=== PATIENT | male | born 2005 | race Caucasian/White ===

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

== ENCOUNTER 2025-01-12 12:58 | Outpatient (REF) | payer OTHER, SELFPAY ==
--- NOTE | 2025-01-12 14:50 | MHC.AU.HA2 ---
Hearing Instrument Fitting- Adult- Binaural Date of Visit: 01/12/25 Hearing Instruments Dispensed: Right Ear: Make, Model, Color, Serial Number: Yumiko Zaidi I70-R SN: [id number] Color: [place] Admitted Attorneys Repair Warranty: 01/14/2030 Admitted Attorneys Loss and Damage Warranty: 01/14/2030 [facility] Service Plan: 01/12/2026 Battery Size: Rechargeable Industrial Engineering Analyst/Slim Tube: 0M Earmold/Dome/CShell/SlimTip: cShell Skeleton SN: [id number] Martha: 04/14/2025 Type of Wax Guard: CeruStop Left Ear: Make, Model, Color, Serial Number: Yumiko Zaidi I70-R SN: [id number] Color: [place] Admitted Attorneys Repair Warranty: 01/14/2030 Admitted Attorneys Loss and Damage Warranty: 01/14/2030 [facility] Service Plan: 01/12/2026 Battery Size: Rechargeable Industrial Engineering Analyst/Slim Tube: 0M Earmold/Dome/CShell/SlimTip: cShell Skeleton SN: [id number] Martha: 04/14/2025 Type of Wax Guard: CeruStop Accessories/Assistive Technology: Phonak Detention Officer PELON SN: [id number] Summary of Fitting: Accompanied by mother, Carla. Per mom, after last hearing test, evaluated by Dr. Renteria and dx left-sided ear infection. Retested left ear prior to fitting with noted improvement in thresholds. Programmed HAs. Performed feedback analyzer. Could not perform real ear due to technical difficulties. Carlos happy with initial fit settings. Disabled VC/program buttons. Reviewed care, use, and rechargeability including manually turning on/off and changing wax guards. As a long-time VIGIL user, Carlos was otherwise familiar with general maintenance. Wanted to connect to phone but did not bring phone to appointment. Printed instructions for how to connect at home. Scheduled follow up but may cancel if all is well. Recommendations: A hearing instrument follow-up was scheduled. Diagnosis Code(s): Primary Diagnosis: H90.6 Mixed Hearing Loss, Bilateral Signature: Provider: Nella Chambers, [facility]
--- OUTSIDE RECORDS SUMMARY | 2025-01-12 15:20 | XMS_ITS | Encounter Summary ---
Author Organization [facility] Address [address] [place], [place] [phone] Phone Care Team Providers Care Guide Domestic Tour Name Role Phone Ziggy Ang MD Primary Care Provider Encounter Details Date Type Department Care Team (Late st Contact Info) Description 09/28/2017 Conversion [facility]counter [facility] [address] [address] Ziggy Ang MD [address] [place] [address] Social History Tobacco Use Types Packs/Day Years Used Date Smoking Tobacco: Never Assessed Sex and Gender Information Value Date Recorded Sex Assigned at Not on file Legal Sex Male 6:26 PM EDT Gender Identity Not on file Sexual Orientation Not on file documented as of this encounter Plan of Treatment Upcoming Encounters Date Type Department Care Team (Late st Contact Info) Description 01/24/2025 10:15 AM EDT [facility] Visit [facility] [address] [address] Ziggy Ang MD [address] [place] [address] documented as of this encounter Visit Diagnoses Not on filedocumented in this encounter Care Teams Guide Domestic Tour Relationship Specialty Start Date End Date Ziggy Ang MD [address] [place] [address] PCP - General Pediatrics 03/27/23 documented as of this encounter
--- OUTSIDE RECORDS SUMMARY | 2025-01-12 15:20 | XMS_ITS | Clinical Summary ---
Author Organization [facility] Address [address] [id number] Care Team Providers Care Hair Colorist Name Role Phone Ziggy Ang MD Primary [...] since no residual, f/u 6 mos. Saw house steward/stewardess 03/14/11 and 03/27 to f/u in 5 [...] since no residual, f/u 6 mos. Saw house steward/stewardess 03/14/11 and 03/27 to f/u in 5 years. Last Assessment & Plan: Cleared by cardiology several years ago per mom Mixed conductive and sensori neural hearing loss of both ears 09/17/2018 05/23/2023 Overview (05/23/2023): [facility] 5 mild hearing loss, to f/u 12/07/09; had test 11/19 and 05/23, borderline normal hearing, left tube patent; Seen at ENT 09/27. Seen at [facility] and planned for hearing aids. Last Assessment & Plan: Hearing aids at school Outside Source Comment: Overview: [facility] hearing test 5 mild hearing loss, to f/u 12/07/09; had test 11/19 and 05/23, borderline normal hearing, left tube patent; Seen at ENT 09/27. Seen at [facility] and planned for hearing aids. Last [...] Overview (05/23/2023): Concerns wtih speech seen at [facility] 10/11/14 to have nasalendoscopy of speech to assess ENVIRONMENTAL PROGRAMS MANAGER closure pattern, to have hearing evaluation, continue speech, get additional services at [facility], f/u in 6 mos at [facility]. Saw Dr. Lowe 10/11/14 to have a nasal endoscopy and to add speech therapy through a hospital clinic, and to f/u in 6 mos. To have speech eval at [facility] per telephone encounter 02/14/15, Seen 03/14/15 dx: severe articulation d/o, hypernasality. to continue speech therapy at school and to have intensive speech therapy outpt. To see Dr. Douglas at ENT 05/01; per ENT note. 03/02: seen Claire; plans for further evaluation and work up. 08/01: considering speech surgery with flap and T&A via [facility]. Last Assessment & Plan: Has upcoming 12/[address] Casarez for pharyngeal flap. Outside Source Comment: Overview: Concerns wtih speech seen at [facility] 10/11/14 to have nasalendoscopy of speech to assess ENVIRONMENTAL PROGRAMS MANAGER closure pattern, to have hearing evaluation, continue speech, get additional services at [facility], f/u in 6 mos at [facility]. Saw Dr. Lowe 10/11/14 to have a nasal endoscopy and to add speech therapy through a hospital clinic, and to f/u in 6 mos. To have speech eval at [facility] per telephone encounter 02/14/15, Seen 03/14/15 dx: severe articulation d/o, hypernasality. to continue speech therapy at school and to have intensive speech therapy outpt. To see Dr. Douglas at ENT 05/01; per ENT note. 03/02: seen [facility]; plans for further evaluation and work up. 08/01: considering speech surgery with flap and T&A via [facility]. Last Assessment & Plan: Has upcoming 12/27 [...] Plan of Treatment Not on file Insurance [facility] [place] [id number] [facility] [place] [facility] [place] [id number] Care Teams Hair Colorist Relationship Specialty Start Date End Date Ziggy Ang MD [address] [place] [id number] PCP - General 02/22/22
--- OUTSIDE RECORDS SUMMARY | 2025-01-12 15:20 | XMS_ITS | Encounter Summary ---
Author Organization [facility] Address [address] [place] [address] Care Team Providers Care Firm Administrator Name Role Phone Unavailable Primary Care Provider Unavailabl e Encounter Details Date Type Department Care Team (Latest Contact Info) Description 06/04/2020 Lab Requisition [facility] COVID Drive Through [address] [place] [address] [address] [place] [address] Gabriel Quiroz MD [address] [place], [place] [phone] Encounter for laboratory testing for COVID-19 virus [...] Lizbeth Sinclair, Ph.D., Laboratory DirectorTests performed at [facility] Nasopharyngeal swab / Unknown 06/04/2020 1:25 PM EST 06/04/2020 1:25 PM EST Narrative OLGA YODER - 06/06/2020 8:48 AM EST Performed by [employer] [employer] [address] [place] [address], CLIA# [id number] and [place] License# [id number] us Gabriel Quiroz MD MICROBIOLOGY - GENERAL ORDER KENDRA Final Result OLGA YODER documented in this encounter Visit Diagnoses Diagnosis Encounter for laboratory testing for COVID-19 virus documented in this encounter
--- OUTSIDE RECORDS SUMMARY | 2025-01-12 15:20 | XMS_ITS | Clinical Summary ---
Author Organization [facility] Address [address] [place] [address] Care Team Providers Care Restaurant General Manager Name Role Phone Unavailable Primary Care Provider Unavailabl e Social History Tobacco Use Types Packs/Day Years Used Date Smoking Tobacco: Never Assessed Sex and Gender Information Value Date Recorded Sex Assigned at Not on file Legal Sex Male 1:24 PM EST Gender Identity Not on file Sexual Orientation Not on file Plan of Treatment Health Maintenance Due Date Last Done Comments Hepatitis C Virus Screening 2005 HIV Screening 2018 HPV Vaccines (1 - Male 3-dos e series) 2020 COVID-19 Vaccine (1 - 2023-2 5 season) 2024 DTaP/Tdap/Td Vaccines (1 - Tdap) 2024 Hepatitis B Vaccines (1 of 3 - 19+ 3-dose series) 2024 Influenza Vaccine 12/10/2024 Pneumococcal Vaccine: Pediat lynn (0-5 Years) and At-Risk Patients (6 to 49 Years) Aged Out No longer eligible b ased on patient's age to complete this topic Insurance [facility] [employer]
--- OUTSIDE RECORDS SUMMARY | 2025-01-12 15:20 | XMS_ITS | Encounter Summary ---
Author Organization [facility] Address [address] [place] [address] Care Team Providers Care Parallel Computing Software Engineer Name Role Phone Unavailable Primary Care Provider Unavailabl e Encounter Details Date Type Department Care Team (Latest Contact Info) Description 06/19/2020 Lab Requisition [facility] COVID Drive Through [address] [place] [address] [address] [place] [address] Gabriel Quiroz MD [address] [place], [place] [phone] Encounter for laboratory testing for COVID-19 virus [...] Stuart García, Ph.D., Laboratory DirectorTests performed at [facility] Nasopharyngeal swab / Unknown 06/19/2020 3:20 PM EST 06/19/2020 3:20 PM EST Narrative OLGA YODER - 06/20/2020 10:14 PM EST Performed by [facility] [address] [place] [address], CLIA# [id number] and [place] License# [id number] us Gabriel Quiroz MD MICROBIOLOGY - GENERAL ORDER KENDRA Final Result OLGA YODER documented in this encounter Visit Diagnoses Diagnosis Encounter for laboratory testing for COVID-19 virus documented in this encounter
--- OUTSIDE RECORDS SUMMARY | 2025-01-12 15:20 | XMS_ITS | Clinical Summary ---
Author Organization [facility] Address [address] [place] [id number] Phone Care Team Providers Care Relationship Assoc Name Role Phone Ziggy Ang MD Primary Care Provider Allergies No known active allergies Medications Multiple Vitamin (MULTIVITAMIN PO) Take 1 tablet by mouth daily. Active cetirizine (ZyrTEC) 10 MG chewable tabletIndicatio ns:Seasonal allergies Chew 1 tablet (10 mg total) daily. 30 tablet 11 4 Active Additional Information Patient not taking.Reported on 06/24/2024 fluticasone 50 MCG/ACT nasal sprayIndication s:Seasonal allergies Administer 1 spray into each nostril daily. 1 mL 5 4 03/25/20 25 Active Additional Information Patient not taking.Reported on 12/08/2024 clotrimazole 1 % creamIndication s:Tinea cruris Apply to redness in groin area twice daily for 3 weeks 90 g 2 5 Active Chlorhexidine Gluconate (Hibiclens) 4 % solutionIndicat ions:Pimples Use when bathing to wash skin of buttocks only to prevent pimples, rinse well 473 mL 3 5 Active amoxicillin 875 MG tabletIndicatio ns:Recurrent acute suppurative otitis media without spontaneous rupture of left tympanic membrane Take 1 tablet (875 mg total) by mouth 2 (two) times a day for 7 days. 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 Seen at [facility] and planned for hearing aids. Assessment & Plan (12/08/2024 2:53 PM EDT): Form signed, scanned and faxed. Assessment & Plan (03/25/2024 3:18 PM EST): [...] hearing. Hypernasal speech 10/03/2016 Overview (05/23/2023): Concerns wtih speech seen at [facility] 10/11/14 to have nasalendoscopy of speech to assess INTERMODAL DISPATCHER closure pattern, to have hearing evaluation, continue speech, get additional services at [facility], f/u in 6 mos at [facility]. Saw Dr. Lowe 10/11/14 to have a nasal endoscopy and to add speech therapy through a hospital clinic, and to f/u in 6 mos. To have speech eval at [facility] per telephone encounter 02/14/15, Seen 03/14/15 dx: severe articulation d/o, hypernasality. to continue speech therapy at school and to have intensive speech therapy outpt. To see Dr. Douglas at ENT 05/01; per ENT note. 03/02: seen [facility]; plans for further evaluation and work up. 08/01: considering speech surgery with flap and T&A via [facility]. 06/04: seen at [facility] for VPI (Velopharyngeal insufficiency) follow up Assessment [...] Darío-Perez virus (EBV) 10/22/2021 11/27/2021 Overview (10/22/2021): 10/31 Fatigue 10/18/2021 11/27/2021 Assessment & Plan (10/18/2021 [...] since no residual, f/u 6 mos. Saw operator coating furnace 03/14/11 and 03/27 to f/u in 5 years. Assessment & Plan (02/14/2023 3:57 PM EDT): Cleared by cardiology several years ago per mom Encounters Date Type Department Care Team Description 12/08/2024 2:30 PM EDT [facility] [address] [address] Ziggy Ang MD Mixed conductive and sensorineural hearing loss of both ears (Primary Dx); Recurrent acute suppurative otitis media without spontaneous rupture of left tympanic membrane 12/01/2024 Telephone [facility] [address] [address] Shahida Kaufman hearing aids clearance 11/24/2024 Telephone [facility] [address] [address] Ziggy Ang MD letter faxed to [facility] from Last 3 Months Immunizations Immunization Administration [...] Father 2016 at ag e 60 [place] age: 62 diagnosed with HEART DISEASE NOS [...] Sign Reading Time Taken Comments Blood Pressure 116/72 12/08/2024 2:29 PM EDT Pulse 97 12/08/2024 2:29 PM EDT Temperature 37 C (98.6 F) 12/08/2024 2:29 PM EDT Respiratory Rate - - Oxygen Saturation 96% 12/08/2024 2:29 PM EDT Inhaled Oxygen Concentration - - Weight 61 kg (134 lb 6.4 oz) 12/08/2024 2:29 PM EDT Height 157.5 cm (5' 2 ) 03/25/2024 3:05 PM EST Body Mass Index 24.58 03/25/2024 3:05 PM EST Plan of Treatment Upcoming Encounters Date Type Department Care Team (Late st Contact Info) Description 01/24/2025 10:15 AM EDT [facility] [address] [address] Ziggy Ang MD [address] [place] [phone] Health Maintenance Due Date Last Done Comments Men B Vaccine (2 of 2 - Bexs ero SCDM 2-dose series) 09/22/2024 03/25/2024 Influenza Vaccines (#1) 2024 03/25/20 24, 02/07/2023, 04/24/2021, Additional history exists COVID-19 Vaccine (6 - 2024-2 6 season) 2025 02/07/2023, 01/28/2022, 05/22/2021, Additional history exists DTaP,Tdap,and Td Vaccines (7 - Td or [...] HPV Vaccines Completed 07/03/2023, 05/0 01/2022, 01/02/2021 Procedures * Due to [place] state law, this organization might not be sharing sensitive test results. Procedure Name Priority Date/Time Associated Diagnosis Comments AMB REFERRAL TO AUDIOLOGY 01/03/2025 1:16 PM EDT Apraxia Down syndrome from Last 3 Months Results * Due to [place] [employer] law, this organization might not be sharing sensitive test results. * Ambulatory referral to Audiology (01/03/2025 1:16 PM EDT) us Ziggy Ang MD OUTPATIENT REFERRAL ORDERABL ES Final Result Performing Organization Address City/State/[facility] Co de Phone Number [facility] [address] [phone] from Last 3 Months Insurance [facility] Address: [address] [address] [place] [address] [facility] NON PCC [facility] NON PCC [facility] Care Teams Relationship Assoc Relationship Specialty Start Date End Date Ziggy Ang MD [address] [place] [address] PCP - General Pediatrics 03/27/23
== END 2025-01-12 12:59 | disposition home or self-care (01) ==
LOC: HO.HAP 12:58
PROVIDERS: Visit Provider Pediatrics
DX: Z46.1 Encounter for fitting and adjustment of hearing aid (principal); H90.6 Mixed conductive and sensorineural hearing loss, bilateral
CPT/HCPCS: V5011; V5160; V5261; V5264

== ENCOUNTER 2025-03-01 14:25 | Outpatient (REF) | payer OTHER, SELFPAY ==
--- OUTSIDE RECORDS SUMMARY | 2025-03-01 19:30 | XMS_ITS | Encounter Summary ---
Author Organization [facility] Address [address] [place] [address] Care Team Providers Care Hedis Coordinator Name Role Phone Unavailable Primary Care Provider Unavailabl e Encounter Details Date Type Department Care Team (Latest Contact Info) Description 06/04/2020 Lab Requisition [facility] COVID Drive Through [address] [place] [address] 3 [place] [address] Gabriel Quiroz MD [address] [place], [place] [phone] Encounter for laboratory testing for COVID-19 virus [...] Lizbeth Sinclair, Ph.D., Laboratory DirectorTests performed at [facility]. Microbiology Nasopharyngeal swab / Unknown 06/04/2020 1:25 PM EST 06/04/2020 1:25 PM EST Narrative OLGA YODER - 06/06/2020 8:48 AM EST Performed by [facility], [address] [place] [address], CLIA# [id number] and [place] License# [id number] us Gabriel Quiroz MD MICROBIOLOGY - GENERAL ORDER KENDRA Final Result OLGA YODER documented in this encounter Visit Diagnoses Diagnosis Encounter for laboratory testing for COVID-19 virus documented in this encounter
--- OUTSIDE RECORDS SUMMARY | 2025-03-01 19:30 | XMS_ITS | Data Portability ---
Author Organization [place] - [facility], Allergy Address [address] [address] Care Team Providers Care Farm Worker Name Role Phone CECILIA AMARAL Primary Care [...] Patient will continue to follow-up with his cable braider for hearing aid maintenance. In light of the narrowness of his canals and tendency to have cerumen impaction I will have him follow-up with the PA in 4 months for cerumen removal and tube check. [email or web address] Not available 01/28/2024 16:11:56 07/19/2024 07/19/2024 18-year-old [...] will follow-up in 3 weeks for reevaluation. [email or web address] Not available 07/19/2024 15:56:47 08/09/2024 08/09/2024 18-year-old male status post adenotonsillectomy and BMT with Dr. Vergara in September 2022 presents for follow-up of the ears. The infection has resolved. Both T tubes are patent and in good position. We will continue to observe and plan for follow up in 6 months, or sooner with concerns. 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 Renteria, then repeat BMT and adenoidectomy with concurrent tonsillectomy in September [address] Vergara, presents with his mother for routine tube check and concern of left otorrhea. On otoscopic examination, purulent drainage was completely filling the left external auditory canal. This was removed using suction which the patient tolerated fairly well. Left T-tube is unable to be visualized due to canal skin edema. Right T-tube is patent and in proper position without otorrhea or infection. Recommend a 14-day course of Ciprodex drops and dry ear precautions for the left side. Tragal pumping method was demonstrated. Follow up in 3 weeks to ensure resolution of the infection. All questions were answered. Patient also seen and evaluated by Dr. Renteria who agrees with this plan. [email or web address] Not available 12/30/2024 17:39:17 02/14/2025 02/14/2025 19-year-old male status post adenotonsillectomy and BMT with Dr. Vergara in September 2022 presents for follow up of otorrhea. Otorrhea removed on the right. Right T tube with otorrhea. Left sided cerumen impaction removed. No further otorrhea on the left. Left T tube is patent and in good position. Recommended an additional 7 days of Ciprodex and dry ear precautions on the right. He will avoid use of right sided hearing aid x 1 week while treating the infection. He will follow up in 2-3 weeks for reevaluation, or sooner with concerns. [email or web address] Not available 02/14/2025 09:35:45 Plan of Treatment Reminders Order Date Submit Date Provider Last Modified By Organization Details Last Modified Time Details Appointments None recorded. Lab fungus, culture, unspecified specimen [address] [facility] [email or web address] [facility] (Centralized Electronic Ordering - All Locations), Patient Can Go To The Location Of Their Choice, [id number] 09:29:44 culture, bacterial 2024 025 [email or web address] [id number] [facility] (Centralized Electronic Ordering - All Locations), Patient Can Go To The Location Of Their Choice, 09:29:44 Referral None recorded. Procedures None recorded. Surgeries None recorded. Imaging None recorded. Medication Orders Ciprodex 0.3 %-0.1 % ear drops,suspe nsion 2024 025 [facility]/Pharmacy #[id number], [address] [place], [address], 5 09:28:27 ciprofloxac in 0.3 %-dexametha sone 0.1 % ear drops,suspe nsion 2024 025 [facility]/Pharmacy #[id number], [address] [place], [address], 5 05:01:51 TobraDex 0.3 %-0.1 % eye drops,suspe nsion 2024 025 [id number] [address] [place], [address], 5 15:55:10 tobramycin 0.3 %-dexametha sone 0.1 % eye drops,suspe nsion 2023 024 [id number] [address] [place], [address], 4 16:07:40 Patient TargetsNo targets recorded. Patient InstructionsNo instructions recorded. Reason for Referral None Reported. Results Created Date Observation Date Name Description Value Unit Range Abnormal Flag Note LastModifiedBy Organization Detail LastModifiedTime 07/20/1907/22/2024 ANAER OBIC AND AEROB IC CULTU RE aerobic culture Final report abnormal Not Available [facility] ([facility]) [address] [place], [address], 08/17/2024 09:51:18 07/20/19 25 07/22/2024 ANAER OBIC AND AEROB IC CULTU RE result 1 COMMEN T abnormal Coryn ebact erium speci es Heavy growt h Susce ptibi lity not jf lly perfo rmed on this organ ism. Not Available [facility] ([facility]) [address] [facility] [place], [place], [address], 08/17/2024 09:51:18 07/20/19 25 07/23/2024 ANAER OBIC AND AEROB IC CULTU RE anaerobic culture Final report Not Available [facility] ([facility]) [address] [place], [address], 08/17/2024 09:51:18 07/20/19 25 07/23/2024 ANAER OBIC AND AEROB IC CULTU RE result 1 COMMEN T No anaer obic growt h in 72 hours . Not Available [facility] ([facility]) [address] [facility] [place], [place], [address], 08/17/2024 09:51:18 07/20/19 25 07/20/2024 FUNGU S CULTU RE WITH STAIN fungus stain Final report Not Available [facility] ([facility]) [address] [place], [address], 08/17/2024 09:51:19 07/20/19 25 07/20/2024 FUNGU S CULTU RE WITH STAIN result 1 COMMEN T GARRETT/C alcof luor prepa ratio n: no fungu s obser lucretia. Not Available [facility] ([facility]) [address] [place], [address], 08/17/2024 09:51:19 07/20/19 25 08/17/2024 FUNGU S CULTU RE WITH STAIN fungus (mycology) culture Final report Not Available [facility] ([facility]) [address] [facility] [place], [place], [address], 08/17/2024 09:51:19 07/20/19 25 08/17/2024 FUNGU S CULTU RE WITH STAIN result 1 COMMEN T No yeast or mold isola geoff after 4 weeks . Not Available [facility] (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 5 09:15:47 Conducti ve hearing loss, bilatera l 721889425 Active 2015 Conducti ve hearing loss, bilatera l; Note: Date Diagnose d: 6 3:50 PM (H90.0) Not Available [facility] 4 03:03:15 Bilatera l disorder of Eustachi an tubes 53746913158 34834 Active 2015 Other specifie d disorder s of Eustachi an tube, bilatera l; Note: Date Diagnose d: 6 3:50 PM (H69.83) DAVID ARTIS PA-C [address] [place] [address],[place] [address], [place], [address] , [facility] 5 09:15:47 Chronic mucoid otitis media of right middle ear 35382551057 68606 Active 2015 Chronic mucoid otitis media, right ear; Note: Date Diagnose d: 6 4:05 PM (H65.31) Not Available [facility] 4 03:03:12 Chronic adenoidi tis 793983479 Active 2016 Chronic adenoidi tis; Note: Date Diagnose d: 7 4:41 PM (J35.02) Not Available [facility] 4 03:03:14 Postoper ative follow-u p visit Active 2016 Post op; Note: Date Diagnose d: 09/16/2016 12:45 PM (V67.00) Not Available [facility] 4 03:03:12 Follow-u p visit Active 2016 Encounte r for follow-u p examinat ion after complete d treatmen t for conditio ns other than malignan t neoplasm ; Note: Date Diagnose d: 09/16/2016 1:13 PM (Z09) Not Available [facility] 4 03:03:15 Down's syndrome NOS Active 2019 Down syndrome , unspecif ied; Note: Date Diagnose d: 0 9:21 AM (Q90.9) Not Available [facility] 4 03:03:13 Impacted cerumen of bilatera l ears 21199900545 24374 Active 2019 Impacted cerumen, bilatera l; Note: Date Diagnose d: 0 9:21 AM (H61.23) Not Available [facility] 4 03:03:14 Otorrhea of right ear 43112588091 71799 Completed 201912/12/2023 Otorrhea , right ear; Note: Date Diagnose d: 0 9:13 AM (H92.11) DAVID ARTIS PA-C [address] [place] [address], [place], [address] , [facility] - [facility] 5 09:27:11 Hypernas ality syndrome 03540863 Active 2020 Hypernas ality; Note: Date Diagnose d: 04/25/20 21 4:13 PM (R49.21) Not Available [facility] 4 03:03:14 Obstruct gallo sleep apnea syndrome 63139222 Active 2022 Obstruct gallo sleep apnea (adult) (pediatr ic); Note: Date Diagnose d: 3 10:12 AM (G47.33) Not Available [facility] 4 03:03:14 Otorrhea of left ear 47168214704 80990 Active 2023 DAVID ARTIS PA-C [address], [place], [address] , [place] - [facility] 5 09:15:47 Otorrhea 64585651 Active 2024 DAVID ARTIS PA-C [address], [place], [address] , [place] - [facility] 5 15:55:52 Impacted cerumen in right ear 20880968722 92748 Active 2024 DAVID ARTIS PA-C [address] [facility] [address], [place], [address] , [place] - [facility] 5 15:57:25 Otorrhea of right ear 39701833127 17222 Active 2024 Otorrhea , right ear; Note: Date Diagnose d: 0 9:13 AM (H92.11) DAVID ARTIS PA-C [address] [facility] [place], [place], [address] , [facility] - [facility] 5 09:27:11 Impacted cerumen in left ear 04851259986 Active 2024 DAVID ARTIS PA-C [address] [facility],[address], [place], [address] , [facility] - [facility] 5 09:35:51 Problem Notes None recorded. Procedures Surgical History Date Name Laterality Status Provider Name and Address Organization Details Recorded Time 5 Cerumen removal without microscope left completed DAVID ARTIS PA-C [address] [facility], [place], [address], [facility] - [facility] 02/14/2025 09:33:59 5 Cerumen removal without microscope right completed DAVID ARTIS PA-C [address] [facility] [address], [place], [address], [facility] - [facility] 07/19/2024 15:56:16 4 EAC debris removal with microscope completed BULMARO RENTERIA MD [address] [facility] [address], [address], [facility] - [facility] 01/28/2024 16:06:13 Imaging Results None recorded. [...] completed Not Available Not Available Not Available amoxicill in 875 mg tablet TAKE 1 TABLET BY MOUTH TWICE A DAY FOR 7 DAYS active Not Available Not Available No t Available ciproflox acin 0.3 % eye drops Apply 3 drop three times a day 11/08 completed Medicati on ID: [id number] B rand Name: Ciloxan Send Method: E-Prescr [...] completed Not Available Not Available Not Available Cipro HC 0.2 %-1 % ear drops,nate pension ADMINIST ER 3 DROPS INTO THE RIGHT EAR 2 TIMES A DAY FOR 7 DAYS. active Not Available Not Available No t [...] for pain 01/27 completed Medicati on ID: [id number] Zuly sears Name: Children 's Tylenol Send Method: E-Prescr ibed Sub s Allowed: subs OK Speci al Instruct ion: Alternat e with motrin M edicatio nGeneric Name: Children 's Tylenol Not Available Not Available Not Available azithromy mary 500 mg tablet TAKE 1 TABLET BY MOUTH EVERY DAY FOR 5 DAYS 01/27 completed Not Available Not Available Not Available ciproflox acin 0.3 %-dexamet hasone 0.1 % ear drops,nate pension APPLY 4 DROPS TO THE RIGHT EAR TWICE A DAY X 7 DAYS active Not Available Not Available No t Available Pain Relief (acetamin ophen) 160 mg/5 [...] Address Organization Details Last Updated DateTime 07/19/2024 41443.75 g 25.7 kg/m2 83 % 156.21 cm Evelin Nance [place] - [facility] 07/19/2024 15:34:15 Date Recorded Body height Provider Name an d Address Organization Details Last Updated DateTime 08/09/2024 156.21 cm Glenny Reyes [place] - [facility] 08/09/2024 15:15:52 Date Recorded Body height Provider Name an d Address Organization Details Last Updated DateTime 12/30/2024 156.21 cm BIBIANA RASMUSSENAna [place] - [facility] 12/30/2024 16:35:55 Date Recorded Body height Body mass index (BMI) [Percentile] Per age and sex Body mass index (BMI) Body weight Provider Name and Address Organization Details Last Updated DateTime 02/14/2025 156.21 cm 80 % 25.7 kg/m2 74401.75 g Evelin Nance [place] - [facility] 02/14/2025 09:06:16 Social History None recorded. Functional Status None recorded. Mental Status None recorded. Family History Nothing Reported. Medical History No medical history recorded. Past Encounters Encounter ID Performer Location Encounter Start Date Encounter Closed Date Diagnosis/Indication Diagnosis SNOMED-CT Code Diagnosis ICD10 Code Diagnosis IMO Codes Diagnosis Note [id number] BULMARO RENTERIA MD [facility] [address] [address] 01/28/2024 14:52:35 01/28/2024 16:12:49 Otorrhea of left ear 4350018107 614113 H92.12 Bilateral disorder of Eustachian tubes 5237040783 074832 H69.83 Complete t risomy 21 syndrome 74497570 Q90.9 Conductive hearing loss, bilateral 398185476 H90.0 [id number] DAVID ARTIS PA-C [facility] [address] [address] 07/19/2024 15:25:58 07/19/2024 15:49:58 Bilateral disorder of Eustachian tubes 3671286284 549162 H69.83 Complete t risomy 21 syndrome 54732891 Q90.9 Otorrhea of left ear 589 0824166 304297 H92.12 Impacted c erumen in right ear 7282102133 822848 H61.21 [id number] DAVID ARTIS PA-C [facility] [address] [address] 08/09/2024 15:09:35 08/09/2024 15:25:07 Bilateral disorder of Eustachian tubes 9037015608 498634 H69.83 Complete t risomy 21 syndrome 46142659 Q90.9 Otorrhea of left ear 258 0415799 912708 H92.12 [id number] KISHAN ZIMMERMAN [facility] [address] [address] 12/30/2024 15:52:23 12/30/2024 17:00:56 Bilateral disorder of Eustachian tubes 0385751767 186144 H69.83 Complete t risomy 21 syndrome 85638371 Q90.9 Otorrhea of left ear 059 9249910 226235 H92.12 [id number] DAVID ARTIS PA-C [facility] [address] [address] 02/14/2025 09:00:46 02/14/2025 09:27:17 Bilateral disorder of Eustachian tubes 5119641374 750198 H69.83 Complete t risomy 21 syndrome 98930373 Q90.9 Otorrhea of left ear 632 8071174 214630 H92.12 Otorrhea of right ear 10 97113324 016241 H92.11 4948886 Impacted c erumen in left ear 9459968249 698011 H61.22 5312284 Health Concerns Section Related Observation LastModified by Organization Detai ls LastModified Time None Recorded Concern Status LastModified by Organization Details LastModified Time None Recorded Advance Directives Directive None Recorded Payers Insurance Date Sequence Insurance Name Policy Number Policy Dumont Covered Member ID Dumont Member ID Guarantor Name 02/14/2025 1 [facility] NET PLAN (MEDICAID HMO) LESIA Guillory [id number] Carla De La Cruz Notes Date Note [...] that mom already had at home. BULMARO RENTERIA MD [address] [facility],[address], [address], [facility] - [facility] 01/28/2024 16:12:17 07/19/2024 text/html ROS as noted in the [facility] 18-year-old male status post adenotonsillectomy and BMT [...] not when bathing. SHANTI SAINZ MD [address] [facility],[address], [address], [facility] - [facility] 07/20/2024 08:41:39 08/09/2024 text/html ROS as noted in the [facility] 18-year-old male status post adenotonsillectomy and BMT with Dr. Vergara in September 2022 presents for follow up of otorrhea. Culture + corynebacterium species. Used Tobradex. Denies otalgia and concerns about his hearing. No further otorrhea. 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 Renteria, then repeat BMT and adenoidectomy with concurrent tonsillectomy in September [address] Vergara, presents with his mother for routine tube check. Mom is concerned that patient is developing an ear infection on the left side due to intermittent drainage. Patient is set to get new hearing aids from [facility]. He was seen by his primary care physician who prescribed oral and otic antibiotics, however she did not want to start them until he was seen here in the office today. BULMARO RENTERIA MD [address] [facility],[address], [address], [place] - [facility] 01/03/2025 12:36:34 02/14/2025 text/html ROS as noted in the [facility] 19-year-old male status post adenotonsillectomy and BMT with Dr. Vergara in September 2022 presents for follow up of otorrhea. Was started on Ciprodex for left sided otorrhea at previous visit with resolution of symptoms. Started with right sided ear pain, bleeding, and drainage x 1 week after having URI. Was started on Ciprodex and has used otic drops for the past week. No further otorrhea. Denies otalgia and concerns about his hearing. CHARLES YAUN MD [address] [facility],[place] [address], [place], [address], [place] - [facility] 02/14/2025 10:47:50
--- OUTSIDE RECORDS SUMMARY | 2025-03-01 19:30 | XMS_ITS | Clinical Summary ---
Author Organization [facility] Address [address] [place] [address] Phone Care Team Providers Care Rn Radiation Oncology Name Role Phone Ziggy Ang MD Primary Care Provider [phone] Allergies No known active allergies Medications Multiple Vitamin (MULTIVITAMIN PO) Take 1 tablet by mouth daily. Active cetirizine (ZyrTEC) 10 MG chewable tabletIndicatio ns:Seasonal allergies Chew 1 tablet (10 mg total) daily. 30 tablet 11 4 Active Additional Information Patient not taking.Reported on 02/07/2025 fluticasone 50 MCG/ACT nasal sprayIndication s:Seasonal allergies Administer 1 spray into each nostril daily. 1 mL 5 4 03/25/20 25 Active Additional Information Patient not taking.Reported on 02/07/2025 clotrimazole 1 % creamIndication s:Tinea cruris Apply to redness in groin area twice daily for 3 weeks 90 g 2 5 Active Additional Information Patient not taking.Reported on 02/07/2025 Chlorhexidine Gluconate (Hibiclens) 4 % solutionIndicat ions:Pimples Use when bathing to wash skin of buttocks only to prevent pimples, rinse well 473 mL 3 5 Active Additional Information Patient not taking.Reported on 02/07/2025 ciprofloxacin-h ydrocortisone (Cipro HC) otic suspensionIndic ations:Non-recu rrent acute suppurative otitis media of right ear with spontaneous rupture of tympanic membrane Administer 3 drops into the right ear 2 (two) times a day for 7 days. 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 Seen at [facility] and planned for hearing aids. Assessment & Plan (01/24/2025 10:12 AM EDT): To follow up with ENT Assessment & Plan (12/08/2024 2:53 PM EDT): [...] Overview (05/23/2023): Concerns wtih speech seen at [facility] 10/11/14 to have nasalendoscopy of speech to assess ZIGZAG STITCHER closure pattern, to have hearing evaluation, continue speech, get additional services at [facility], f/u in 6 mos at [facility]. Saw Dr. Lowe 10/11/14 to have a nasal endoscopy and to add speech therapy through a hospital clinic, and to f/u in 6 mos. To have speech eval at [facility] per telephone encounter 02/14/15, Seen 03/14/15 dx: severe articulation d/o, hypernasality. to continue speech therapy at school and to have intensive speech therapy outpt. To see Dr. Douglas at ENT 05/01; [facility] ENT [facility] plans for further evaluation and work up. 08/01: considering speech surgery with flap and T&A via [facility]. 06/04: seen at [facility] for VPI (Velopharyngeal insufficiency) follow up Assessment & Plan (01/24/2025 10:26 AM EDT): Follow up with speech as planned. Assessment & Plan (02/14/2023 3:57 PM EDT): Has upcoming 12/[address] Casarez for pharyngeal flap. Assessment & Plan (01/02/2021 9:27 AM EDT): Continue speech Assessment & Plan (10/12/2018 10:06 PM EDT): Continue to work with speech. Apraxia 10/03/2016 Overview (05/21/2024): Seen by [facility] 05/30, 04/29 Planned for PPF (Posterior Pharyngeal Flap) surgery: 03/03. Seen by [facility] speech, 06/05 Assessment & Plan (02/14/2023 3:58 PM [...] Date Otorrhea, left 11/10/2023 03/25/2024 Overview (11/10/2023): 7. Assessment & Plan (11/10/2023 6:53 PM EDT): [...] 6 months; echo 07/19 no residual PDA, 4/ saw Cardiology, no need for SBE prophylaxis since no residual, f/u 6 mos. Saw debt management counselor 03/14/11 and 03/27 to f/u in 5 years. Assessment & Plan (02/14/2023 3:57 PM EDT): Cleared by cardiology several years ago per mom Encounters Date Type Department Care Team Description 02/08/2025 Telephone [facility] [address] [address] Ziggy Ang MD Results 02/07/2025 6:00 PM EDT [facility] Visit [facility] [address] [address] Junior Parnell MD Non-recurrent acute suppurative otitis media of right ear with spontaneous rupture of tympanic membrane (Primary Dx) 02/07/2025 Telephone [facility] [address] [address] Yee Ritter LPN Ear Problem 01/24/2025 10:15 AM EDT [facility] Visit [facility] [address] [place] [address] Ziggy Ang MD Well adult exam (Primary Dx); Down syndrome; Mixed conductive and sensorineural hearing loss of both ears; Hypernasal speech; Need for vaccination 01/21/2025 Telephone [facility] [address] [address] Kate Claudia, [place] 12/08/2024 2:30 PM EDT [facility] [address] [address] Ziggy Ang MD Mixed conductive and sensorineural hearing loss of both ears (Primary Dx); Recurrent acute suppurative otitis media without spontaneous rupture of left tympanic membrane 12/01/2024 Telephone [facility] [address] [address] Shahida Kaufman hearing aids clearance from Last 3 Months Immunizations Immunization Administration [...] 02/07/2023,04/24/2021,03/29/2019,03/24,03/24/2017,02/17/2014,04/22/2013 Influenza, injectable, triva lent, preservative free 01/24/2025,03/25/2024,03/19/2008,03/30,07/07/2006,05/29/2006 Influenza, intradermal, quad rivalent, preservative free 01/27/2020 MMR 03/01/2010 MMRV 11/06/2006 Meningococcal B Bexsero 01/24/2025,03/25/2024 Meningococcal Conj (Menactra) MCV4P 11/27/2021,0 10/08/2017 Pneumococcal Conjugate 09/02/2007,2006,03/27/2006,01/23 Tdap 10/08/2017 Varicella 03/01/2010 Family History Medical History Relation Name Comments Heart attack Father age 60 Prostate cancer Maternal Grandfather Cancer Maternal Grandmother Hypothyroidism Mother Cancer Paternal Grandfather COPD Paternal Grandmother Heart disease Paternal Grandmother Relation Name Status Comments Father 2016 at ag e 60 of [place] age: 62 diagnosed with HEART DISEASE NOS [...] there wasn't enough money for food? No 01/24/2025 Stable Housing Answer Date Recorded Are you worried that in the next 2 months you may not have stable housing? No 01/24/2025 Transportation Concerns Answer Date Rec orded In the last 12 months, have you or your family ever had to go without healthcare because you didn't have a way to get there? No 01/24/2025 Hazards in Home Answer Date Recorded Think about the place you li ve. Do you have problems with any of the following? Pests (mice or roaches), mold, no/not working smoke detectors, water leaks, no window guards. No 2024 Financing Utilities Answer Date Recorde d In the last 12 months, has t he electric, gas, oil, or water company threatened to shut off your services in your home? No 01/24/2025 Safety at Home Answer Date Recorded Are you or your family worried about feeling saf e in your home? No 01/24/2025 Outside Support Answer Date Recorded Do you feel that you need mo re support from other people or programs to help you care for yourself or your family? No 01/24/2025 Understanding Health Concerns Answer Da te Recorded Do you need help understandi ng your or your child's healthcare needs (diagnosis, medications, plan, etc.)? No 01/24/2025 Financing Health Concerns Answer Date R ecorded In the last 12 months, was t here a time when your child needed to see a doctor or get medications or supplies but could not because of cost? No 01/24/2025 Missing School or Work Answer Date Kiet rded Did you or your child miss s chool or work because of a health problem that could have been avoided? No 01/24/2025 Child Education Answer Date Recorded Do you have concerns about y our/your child's learning or behavior in school, preschool, or daycare? No 01/24/2025 Sex and Gender Information Value Date Recorded Sex Assigned at Not on file Legal Sex Male 6:26 PM EDT Gender Identity Not on file Sexual Orientation Not on file Last Filed Vital Signs Vital Sign Reading Time Taken Comments Blood Pressure 130/80 02/07/2025 5:55 PM EDT Pulse 97 12/08/2024 2:29 PM EDT Temperature 36.9 C (98.4 F) 02/07/2025 5:55 PM EDT Respiratory Rate - - Oxygen Saturation 96% 12/08/2024 2:29 PM EDT Inhaled Oxygen Concentration - - Weight 59.4 kg (131 lb) 02/07/2025 5:55 PM EDT Height 156.2 cm (5' 1.5 ) 02/07/2025 5:55 PM EDT Body Mass Index 24.35 02/07/2025 5:55 PM EDT Plan of Treatment Health Maintenance Due Date Last Done Comments COVID-19 Vaccine (6 - 2024-2 6 season) [...] 07/03/2023, 05/0 01/2022, 01/02/2021 Influenza Vaccines Completed 01/24/2025, 1 05/25/2023, 02/07/2023, Additional history exists Men B Vaccine Completed 01/24/2025, 03/25/2024 Procedures * Due to [place] [employer] law, this organization might not be sharing sensitive test results. Procedure Name Priority Date/Time Associated Diagnosis Comments TISSUE TRANSGLUTAMINASE, IGA Routine 02/07/2025 3:26 PM EDT Down syndrome CBC DIFFERENTIAL Routine 02/07/2025 3:26 PM EDT Down syndrome TSH Routine 02/07/2025 3:26 PM EDT Down syndrome BRIEF BEHAVIORAL ASSESSMENT - NORMAL(PSC,PHQ9,VANDE RBILT,ETC) Routine 01/24/2025 10:29 AM EDT Well adult exam EPSDT - ADDITIONAL SERVICES FOR STATE FUNDED INSURANCE Routine 01/24/2025 10:29 AM EDT Well adult exam AMB REFERRAL TO AUDIOLOGY 01/03/2025 1:16 PM EDT Apraxia Down syndrome from Last 3 Months Results * Due to [place] [employer] law, this organization might not be sharing sensitive test results. * Tissue transglutaminase, IgA (02/07/2025 3:26 PM EDT) tTG IgA <2 0 - 3 U/mL [facility] Comment: Negative 0 - 3 Weak Positive 4 - 10 Positive >10 Tissue Transglutaminase (tTG) has been identified as the endomysial antigen. Studies have demonstr- ated that endomysial IgA antibodies have over 99% specificity for gluten sensitive enteropathy. Blood 02/07/2025 3:26 PM EDT 02/07/2025 Narrative [facility] - 02/08/2025 7:05 PM EDT Performed at: 01 - [address] [id number] Adjunct Instructor Of Women'S Studies: Gloria Auguste MD, Phone: [phone] us Zigyg Ang MD LAB BLOOD ORDERABLES Final R esult [facility] [address] [place] [address] * (ABNORMAL) CBC and Differential (02/07/2025 3:26 PM EDT) WBC 6.4 3.4 - 10.8 x10E3/uL [facility] RBC 4.30 4.14 - 5.80 x10E6/uL [facility] HGB 14.3 13.0 - 17.7 g/dL [facility] HCT 42.0 37.5 - 51.0 % [facility] MCV 98(H) 79 - 97 fL [facility] MCH 33.3(H) 26.6 - 33.0 pg [facility] MCHC 34.0 31.5 - 35.7 g/dL [facility] RDW 13.9 11.6 - 15.4 % [facility] Platelets in Blood, Automated Count 326 150 - 450 x10E3/uL [facility] Neutrophils % 66 Not Estab. % [facility] Lymphocytes % 22 Not Estab. % [facility] Monocytes % 8 Not Estab. % [facility] Eosinophils % 1 Not Estab. % [facility] Basophil % 2 Not Estab. % [facility] Neutrophils Absolute 4.3 1.4 - 7.0 x10E3/uL [facility] Lymphocytes Absolute 1.4 0.7 - 3.1 x10E3/uL [facility] Monocytes Absolute 0.5 0.1 - 0.9 x10E3/uL [facility] Eosinophils Absolute 0.1 0.0 - 0.4 x10E3/uL [facility] Basophil Absolute 0.1 0.0 - 0.2 x10E3/uL [facility] Immature Granulocytes % 0 Not Estab. % [facility] Immature Granulocytes Absolute 0.0 0.0 - 0.1 x10E3/uL [facility] Blood 02/07/2025 3:26 PM EDT 02/07/2025 Narrative [facility] - 02/08/2025 6:05 AM EDT Performed at: [facility] [id number] Adjunct Instructor Of Women'S Studies: Gloria Auguste MD, Phone: [phone] Ziggy Ang MD LAB BLOOD ORDERABLES Final R esult Performing Organization Address [facility] Co de Phone Number [facility] [address] * TSH (02/07/2025 3:26 PM EDT) [facility] TSH (Thyroid Stimulating Hormone) 1.190 0.450 - 4.500 uIU/mL [facility] Blood 02/07/2025 3:26 PM EDT 02/07/2025 Narrative [facility] - 02/08/2025 8:06 AM EDT Performed at: [facility] [address] [id number] Adjunct Instructor Of Women'S Studies: Gloria Auguste MD, Phone: [phone] Ziggy Ang MD LAB BLOOD ORDERABLES Final R esult Performing Organization Address City/[facility]/ZIP Co de Phone Number [facility] [address] [place] [address] * Ambulatory referral to Audiology (01/03/2025 1:16 PM EDT) Ziggy Ang MD OUTPATIENT REFERRAL ORDERABL ES Final Result Performing Organization Address City/[facility]/ZIP Co de Phone Number [facility] [address] [address] from Last 3 Months Insurance [facility] Address: [address] [address] [place] [address] [facility] Care Teams Rn Radiation Oncology Relationship Specialty Start Date End Date Ziggy Ang MD [address] [address] PCP - General Pediatrics 03/27/23
--- OUTSIDE RECORDS SUMMARY | 2025-03-01 19:30 | XMS_ITS | Clinical Summary ---
Author Organization [facility] Address [address] [id number] Care Team Providers Care Accounts Payable Technician Name Role Phone Ziggy Ang MD Primary [...] since no residual, f/u 6 mos. Saw ehs teacher 03/14/11 and 03/27 to f/u in 5 [...] since no residual, f/u 6 mos. Saw ehs teacher 03/14/11 and 03/27 to f/u in 5 years. Last Assessment & Plan: Cleared by cardiology several years ago per mom Mixed conductive and sensori neural hearing loss of both ears 09/17/2018 05/23/2023 Overview (05/23/2023): [facility] hearing test 5 mild hearing loss, to f/u 12/07/09; had test 11/19 and 05/23, borderline normal hearing, left tube patent; Seen at ENT 09/27. Seen at [facility] and planned for hearing aids. Last Assessment & Plan: Hearing aids at school Outside Source Comment: Overview: [facility] hearing test 5 mild hearing loss, to f/u 12/07/09; had test 11/19 and 05/23, borderline normal hearing, left tube patent; Seen at ENT 09/27. Seen at [facility] and planned for hearing aids. Last [...] Overview (05/23/2023): Concerns wtih speech seen at [facility] 10/11/14 to have nasalendoscopy of speech to assess SWATCH CHECKER closure pattern, to have hearing evaluation, continue speech, get additional services at [facility], f/u in 6 mos at [facility]. Saw Dr. Lowe 10/11/14 to have a nasal endoscopy and to add speech therapy through a hospital clinic, and to f/u in 6 mos. To have speech eval at [facility] per telephone encounter 02/14/15, Seen 03/14/15 dx: severe articulation d/o, hypernasality. to continue speech therapy at school and to have intensive speech therapy outpt. To see Dr. Douglas at ENT 05/01; per ENT note. 03/02: seen [facility]; plans for further evaluation and work up. 08/01: considering speech surgery with flap and T&A via [facility]. Last Assessment & Plan: Has upcoming 12/[address] Casarez for pharyngeal flap. Outside Source Comment: Overview: Concerns wtih speech seen at [facility] 10/11/14 to have nasalendoscopy of speech to assess SWATCH CHECKER closure pattern, to have hearing evaluation, continue speech, get additional services at [facility], f/u in 6 mos at [facility]. Saw Dr. Lowe 10/11/14 to have a nasal endoscopy and to add speech therapy through a hospital clinic, and to f/u in 6 mos. To have speech eval at [facility] per telephone encounter 02/14/15, Seen 03/14/15 dx: severe articulation d/o, hypernasality. to continue speech therapy at school and to have intensive speech therapy outpt. To see Dr. Douglas at ENT 05/01; per ENT note. 03/02: seen [facility]; plans for further evaluation and work up. 08/01: considering speech surgery with flap and T&A via [facility]. Last Assessment & Plan: Has [...] 05/24/2024 1:0 6 PM EST Growth Chart: [facility] (Boys, 2-2 0 Years) Plan of Treatment Not on file Insurance [facility] [place] [address] [facility] [place] [address] Care Teams Accounts Payable Technician Relationship Specialty Start Date End Date Ziggy Ang MD [address] [place] [id number] PCP - General 02/22/22
--- OUTSIDE RECORDS SUMMARY | 2025-03-01 19:30 | XMS_ITS | Clinical Summary ---
Author Organization [facility] Address [address] [place] [address] Care Team Providers Care Inspection Machine Tender Name Role Phone Unavailable Primary Care Provider [...] (1 - Male 3-dos e series) 2020 DTaP/Tdap/Td Vaccines (1 - Tdap) 2024 Hepatitis B Vaccines (1 of 3 - 19+ 3-dose series) 2024 Influenza Vaccine 12/10/2024 COVID-19 Vaccine (1 - 2023-2 5 season) 2025 Pneumococcal Vaccine: Pediat lynn (0-5 Years) and At-Risk Patients (6 to 49 Years) Aged Out No longer eligible b ased on patient's age to complete this topic Insurance [facility] COMM[employer]CIAL
--- OUTSIDE RECORDS SUMMARY | 2025-03-01 19:30 | XMS_ITS | Encounter Summary ---
Author Organization [facility] Address [address] [place] [address] Care Team Providers Care Head Control Clerk Name Role Phone Unavailable Primary Care Provider Unavailabl e Encounter Details Date Type Department Care Team (Latest Contact Info) Description 06/19/2020 Lab Requisition [facility] [address] Through [address] [place] [address] [address] [place] [address] Gabriel Quiroz MD [address] [place], [place] [id number] Encounter for laboratory testing for COVID-19 virus [...] Stuart García, Ph.D., Laboratory DirectorTests performed at [facility] Nasopharyngeal swab / Unknown 06/19/2020 3:20 PM EST 06/19/2020 3:20 PM EST Narrative [facility] - 06/20/2020 10:14 PM EST Performed by [facility] [address] [place] [address], CLIA# [id number] and [place] License# [id number] us Gabriel Quiroz MD MICROBIOLOGY - GENERAL ORDER KENDRA Final Result [facility] documented in this encounter Visit Diagnoses Diagnosis Encounter for laboratory testing for COVID-19 virus documented in this encounter
--- OUTSIDE RECORDS SUMMARY | 2025-03-01 19:30 | XMS_ITS | Encounter Summary ---
Author Organization [facility] Address [address] [place] [phone] Phone Care Team Providers Care Equipment Oiler Name Role Phone Ziggy Ang MD Primary Care Provider [phone] Encounter Details Date Type Department Care Team (Late st Contact Info) Description 09/28/2017 [facility]counter [facility] [id number] [place] [address] Ziggy Ang MD [address] [place] [address] Social History Tobacco Use Types Packs/Day Years [...] on filedocumented in this encounter Care Teams Equipment Oiler Relationship Specialty Start Date End Date Ziggy Ang MD [address] [place] [address] PCP - General Pediatrics 03/27/23 documented as of this encounter
== END 2025-03-01 14:26 | disposition home or self-care (01) ==
LOC: HO.HAP 14:25
PROVIDERS: Visit Provider Pediatrics
DX: Z13.89 Encounter for screening for other disorder (principal)